=== PATIENT | male | born 1990 | race Caucasian/White ===

== ENCOUNTER 2017-06-06 19:25 | Emergency (ER) | payer BC ==
[~2017-06-06] VITALS: Ht 172.7 cm; Wt 72.6 kg
--- NOTE | 2017-06-06 19:56 | NUR ---
PT TO ER BED 11 ACCOMPANIED BY FRIEND. C/O DEPRESSION W/ PLAN TO HANG HIMSELF. PT STATES WAS SEEN BY PSYCHIATRIST A WEEK AGO AND WAS PUT ON LITHIUM. PT STATES SYMPTOMS GOT WORST. 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 AWAITING MD GUZMAN.
--- NOTE | 2017-06-06 19:59 | NUR ---
MANJIT GALLO AT BEDSIDE FOR EVAL.
--- NOTE | 2017-06-06 20:24 | NUR ---
Francisco de la torre in [facility] - 06/06/17 at 2237 by GORAN IV LINE STARTED BLOOD DRAWN AND SENT TO LAB.
--- NOTE | 2017-06-06 20:24 | NUR ---
NUT SIFTER AT BEDSIDE FOR BLOOD DRAW.
[2017-06-06 20:27] LABS: BASOPHILS % (AUTO) 0.4 % (0.0-2.0); EOSINOPHILS % (AUTO) 0.3 % (0.0-6.0); HEMATOCRIT 47 % (39-51); HEMOGLOBIN 16.1 g/dL (13.5-17.5); LYMPHOCYTES # (AUTO) 2.1 /CMM (0.8-4.8); LYMPHOCYTES % (AUTO) 23.7 % (20.0-44.0); MEAN CORPUSCULAR HEMOGLOBIN 30 PG (26.0-33.0); MEAN CORPUSCULAR HGB CONC 34 g/dl (31.0-36.0); MEAN CORPUSCULAR VOLUME 87 fL (80-96); MONOCYTES # (AUTO) 0.4 /CMM (0.1-1.30); NEUTROPHILS # (AUTO) 6.3 /CMM (1.8-8.9); NEUTROPHILS % (AUTO) 71.6 % (43.0-81.0); PLATELET COUNT (AUTO) 314 /CMM (150-450); RDW COEFFICIENT OF VARIATION 11.9 (11.5-15.0); RED BLOOD CELL COUNT(AUTO) 5.41 MIL/uL (4.5-6.0); WHITE BLOOD COUNT (AUTO) 8.8 K/uL (4.3-11.0)
[2017-06-06 20:37] LABS: CALCIUM, SERUM 10.2 mg/dL (8.5-10.1); CARBON DIOXIDE 25 mmol/L (21-32); CHLORIDE 100 mmol/L (98-107); GLUCOSE 88 mg/dL (74-106); POTASSIUM 3.9 mmol/L (3.5-5.1); SODIUM SERUM 137 mmol/L (136-145); UREA NITROGEN, BLOOD 15 mg/dL (7-18)
[2017-06-06 20:43] LABS: ALANINE AMINOTRANSFERASE 22 U/L (12-78); ALBUMIN 4.9 g/dL (3.4-5.0); ALCOHOL, BLOOD < 3 mg/dL (0-0); ALKALINE PHOSPHATASE 130 U/L (46-116); ASPARTATE AMINOTRANSFERASE 20 U/L (15-37); BILIRUBIN,DIRECT 0.1 mg/dL (0.0-0.2); BILIRUBIN,TOTAL 0.6 mg/dL (0.2-1.0); TOTAL PROTEIN, SERUM 9.3 g/dL (6.4-8.2)
[2017-06-06 20:45] LABS: ACETAMINOPHEN 0 ug/ml (10-30); SALICYLATE 2.4 mg/dL (2.8-20.0)
--- NOTE | 2017-06-06 21:55 | NUR ---
MANJIT GALLO MADE AWARE OF PT'S BLOOD PRESSURE. PT STATES HE TAKES PROPRANOLOL 40MG BID.
[2017-06-06] MEDS ORDERED: PROPRANOLOL HCL 40 MG TABLET PO STA (21:56)
[2017-06-06] MEDS ORDERED: PROPRANOLOL LA 60 MG CAP.SA.24H PO STA (22:07)
[2017-06-06] MEDS ORDERED: PROPRANOLOL LA 60 MG CAP.SA.24H PO ONE (22:09)
--- NOTE | 2017-06-06 23:08 | NUR ---
COLBY GALLO MADE AWARE OF BLOOD PRESSURE STILL HIGH. AWAITING NEW ORDERS.
[2017-06-06] MEDS ORDERED: CLONIDINE HCL 0.1 MG TABLET ONE (23:11)
--- NOTE | 2017-06-06 23:14 | NUR ---
ART DRAWER IN [facility] AT BEDSIDE FOR PSYCH EVAL.
[2017-06-06] MEDS ORDERED: CLONIDINE HCL 0.1 MG TABLET PO ONE (23:30)
--- NOTE | 2017-06-06 23:32 | NUR ---
REPORT TO BRAULIO BLANK FOR RONNELL.
--- NOTE | 2017-06-07 00:48 | NUR ---
VITAL SIGNS UPDATED.
--- NOTE | 2017-06-07 01:21 | NUR ---
CALLED [facility]. REFERENCE NUMBER [id number]; ETA [phone]
--- NOTE | 2017-06-07 01:21 | NUR ---
PATIENT RESTING IN ER BED, NO DISTRESS NOTED, WILL CONTINUE TO MONITOR
--- NOTE | 2017-06-07 02:01 | NUR ---
GIULIANO BLANK AT [facility] WITH [facility] TOOK REPORT FOR PSYCH ADMISSION. PATIENT IS RESTING IN ER BED, NO DISTRESS NOTED. WILL CONTINUE TO MONITOR
--- NOTE | 2017-06-07 03:23 | NUR ---
RECEIVED RPEORT AT THIS TIME. RESTING WITH EYES CLOSED BUT EASILY AROUSABLE. DENIES ANY SX'S AT THIS TIME. NO S/S OF DISTRESS NOTED. RESP EVEN AND UNLABORED. NON DIAPHORETIC. CALL LIGHT WITHIN REACH. STILL AWAITING AMBULANCE FOR TRANSFER TO [place] AND PT AWARE.
--- NOTE | 2017-06-07 04:08 | NUR ---
AWAKE AND ON THE PHONE. DENIES ANY SX'S AT THIS TIME. UPDATED OF STATUS.
[2017-06-07 04:09] VITALS: BP 134/85
--- NOTE | 2017-06-07 04:14 | NUR ---
REPORT GIVEN TO NATA/EMT.
== END 2017-06-07 04:23 ==
LOC: ER 19:25
DX: R45.851 Suicidal ideations (principal); F41.9 Anxiety disorder, unspecified; I10 Essential (primary) hypertension; F32.9 Major depressive disorder, single episode, unspecified
CPT/HCPCS: 36415; 80048; 80076; 80305; 80329; 85025; 99285; A4606; G0480 ×2; Z7610